=== PATIENT | male | born 1965 | race Caucasian/White ===

== ENCOUNTER 2021-03-05 10:08 | Emergency (ER) | payer MEDICARE, MEDICAID ==
[~2021-03-05] VITALS: Ht 170.2 cm; Wt 95.5 kg
[2021-03-05 10:20] VITALS: TEMP 98.2
[2021-03-05] MEDS ORDERED: VOLTAREN GEL 1%1 TU TP (10:25)
[2021-03-05] MEDS ORDERED: PRINIVIL20 MG PO (10:25)
[2021-03-05] MEDS ORDERED: FLONASEALLERGY NS (10:27)
[2021-03-05] MEDS ORDERED: SPIRIVA RE2.5 MCG/Ac IH (10:27)
[2021-03-05 11:01] LABS: BASO % 0.4 % (0.0-2.0); EOS # 0.1 K/mm3 (0.0-0.7); EOS % 0.6 % (0-4.0); GRAN # 6.5 K/mm3 (1.4-6.5); HEMATOCRIT 45.5 % (42.0-52.0); HEMOGLOBIN 16.3 g/dl (13.5-18.0); MEAN CELL VOLUME 93 fl (80.0-100.0); MEAN CORPUSCULAR HEMOGLOBIN 33 pg (27.0-31.0); MEAN CORPUSCULAR HGB CONC 36 g/dl (33.0-37.0); MEAN PLATELET VOLUME 8.9 fl (7.4-10.4); MONO # 0.9 K/mm3 (0.1-0.6); MONO % 9.8 % (1.7-9.3); PLATELET COUNT 310 K/mm3 (130-400); RED BLOOD COUNT 4.88 M/mm3 (4.20-5.60); REDCELL DISTRIBUTION WIDTH-CV 11.9 % (11.5-14.5)
[2021-03-05 11:21] LABS: ALANINE AMINOTRANSFERASE 19 U/L (0-55); ALBUMIN 4.3 gm/dL (3.5-5.0); ALKALINE PHOSPHATASE 58 U/L (40-150); ANION GAP 9 mmol/L (7-16); AST,SGOT 18 U/L (5-34); BILIRUBIN,TOTAL 0.9 mg/dL (0.2-1.2); BLOOD UREA NITROGEN 10 mg/dL (8-26); CALCIUM 9.8 mg/dL (8.4-10.2); CARBON DIOXIDE 24 mmol/L (22-29); CHLORIDE 105 mmol/L (98-107); CREATININE, serum 0.86 mg/dL (0.72-1.25); GLUCOSE 111 mg/dL (70-99); POTASSIUM 3.3 mmol/L (3.5-4.5); SODIUM 138 mmol/L (136-145); TOTAL PROTEIN 8.1 gm/dL (6.2-8.1)
[2021-03-05 11:40] LABS: TSH w REFLEX 0.961 uIU/mL (0.350-4.940)
[2021-03-05 11:41] LABS: ACETAMINOPHEN < 1.0 ug/mL (10-30); ALCOHOL(ethanol),MEDICAL < 10 mg/dL (0-10); SALICYLATE < 5.0 mg/dL (15.0-30.0)
[2021-03-05 12:52] LABS: TRICYCLIC ANTIDEPRESS URINE NEGATIVE
[2021-03-05 13:50] LABS: COLLECTION METHOD CLEAN CATCH
[2021-03-05 13:56] LABS: PH 5 (5-8); SQUAMOUS EPITHELIAL None Seen /hpf; URINE APPEARANCE Clear; URINE BACTERIA None Seen /hpf; URINE BILIRUBIN Negative (NEGATIVE); URINE BLOOD Negative (NEGATIVE); URINE COLOR Straw; URINE GLUCOSE Negative (NEGATIVE); URINE KETONE Negative (NEGATIVE); URINE LEUKOCYTE ESTERASE Negative (NEGATIVE); URINE NITRATE Negative (NEGATIVE); URINE PROTEIN(semi-quant) Negative (NEGATIVE); URINE RBC None Seen /hpf; URINE UROBILINOGEN Negative (NEGATIVE)
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
[2021-03-05 17:02] VITALS: BP 180/75; PULSE 104
== END 2021-03-05 17:02 | disposition home or self-care (01) ==
LOC: COL.ER 10:08
PROVIDERS: Nurse Practitioner Primary Care
DX: F32.A Depression, unspecified (principal); F60.0 Paranoid personality disorder; F19.10 Other psychoactive substance abuse, uncomplicated; I10 Essential (primary) hypertension; J44.9 Chronic obstructive pulmonary disease, unspecified; F17.210 Nicotine dependence, cigarettes, uncomplicated; Z79.899 Other long term (current) drug therapy